=== PATIENT | female | born 1930 | race Caucasian/White ===

== ENCOUNTER 2019-03-13 16:51 | Emergency (ER) | payer SELFPAY ==
[~2019-03-13] VITALS: Wt 56.0 kg
[2019-03-13 16:55] VITALS: BP 155/68; PULSE 74; RESP 18
== END 2019-03-13 17:16 | disposition left against medical advice (07) ==
LOC: E/R 16:51
DX: Z53.21 Procedure and treatment not carried out due to patient leaving prior to being seen by health care provider (principal)

== ENCOUNTER 2019-08-15 14:54 | Emergency (ER) | payer OTHER ==
[~2019-08-15] VITALS: Ht 152.4 cm; Wt 58.1 kg
[2019-08-15 14:57] VITALS: BP 186/73; PULSE 82; RESP 16; Ht 152.4 cm; Wt 58.1 kg
== END 2019-08-15 16:14 | disposition home or self-care (01) ==
LOC: E/R 14:54
DX: N28.9 Disorder of kidney and ureter, unspecified (principal); I10 Essential (primary) hypertension; D64.9 Anemia, unspecified
CPT/HCPCS: 71045; 80048; 82962; 84484; 85025; 93005